=== PATIENT | female | born 1965 | race African-American/Black ===

== ENCOUNTER 2017-06-05 14:35 | Emergency (ER) | payer OTHER, MEDICARE ==
[~2017-06-05] VITALS: Ht 162.6 cm; Wt 86.2 kg
[~2017-06-05 14:35] MED LIST: ADVAIR 250-501 EACH INH; ALBUTEROL2.5 MG/0.5 INH/SOL; ALPRAZOLAM1 M2 PO; BUSPIRONE HCL30 M1 PO; CHANTIX0.5 M1 PO; CLONAZEPAM0.5 M2 PO; CLONAZEPAM1 M2 PO; CYCLOBENZAPRINE5 M2 PO; DAILY MULTIPLE1 EACH PO; DITROPAN XL10 M1 PO; ESCITALOPRAM OX20 MG PO; GUAIFENESIN-COD10 ML PO; IPRATROPIU0.2 MG/1 M INH/SOL; LEXAPRO20 M1 PO; LYRICA75 M1 PO; MEDROL4 M2 PO; MINIPRESS2 M1 PO; MONTELUKAST SOD10 M1 PO; NASONEX17 GM NASB; PANTOPRAZOLE SO40 M1 PO; PRAZOSIN HCL1 M1 PO; PROAIR HFA8.5 GM INH; TESSALON PERLE100 M1 PO; XANAX1 M1 PO; ZITHROMAX500 M2 PO
--- NOTE | 2017-06-05 16:05 | ED GI/GU/ABDOMINAL COMPLAINT ---
History of Present Illness General Chief Complaint: Abdominal Pain/Flank Pain Stated Complaint: ABDOMINAL PAIN, DIZZINESS Source: patient Exam Limitations: no limitations Vital Signs & Intake/Output Vital Signs & Intake/Output Vital Signs Date Time Temp Pulse Resp B/P B/P Pulse O2 O2 Flow FiO2 Mean Ox Delivery Rate 06/05 1955 98.1 77 18 98/55 100 Room Air 06/05 1836 95 Room Air 06/05 1447 97.5 76 20 112/78 95 Room Air Allergies Coded Allergies: No Known Allergies (04/13/16) Reconcile Medications Albuterol Sulfate (Proair Hfa) 90 MCG HFA.AER.AD 2 PUF INH Q4-6 PRN PRN ASTHMA (Reported) Buspirone HCl 30 MG TABLET 1 TAB PO BID DEPRESSION (Reported) Clonazepam 0.5 MG TABLET 1 TAB PO DAILY ANXIETY (Reported) Clonazepam 1 MG TABLET 1 TAB PO QPM ANXIETY (Reported) Cyclobenzaprine HCl 5 MG TABLET 1 TAB PO BIDP PRN PAIN (Reported) Escitalopram Oxalate 20 MG TABLET 1 TAB PO DAILY DEPRESSION (Reported) Fluticasone/Salmeterol (Advair 250-50 Diskus) 250 MCG-50 MCG/DOSE BLST.W.DEV 1 PUF INH BID ASTHMA (Reported) Mometasone Furoate (Nasonex) 50 MCG SPRAY.PUMP 2 SPRAY NASB DAILY ALLERGIES ( Reported) Montelukast Sodium 10 MG TABLET 1 TAB PO QPM ASTHMA (Reported) Oxybutynin Chloride (Ditropan XL) 10 MG TAB.ER.24 1 TAB PO DAILY INCONTINENCE (Reported) Pantoprazole Sodium 40 MG TABLET.DR 1 TAB PO DAILY ACID REFLUX (Reported) Prazosin HCl (Minipress) 2 MG CAPSULE 1 CAP PO QPM PTSD (Reported) Prazosin HCl 1 MG CAPSULE 1 CAP PO BID PRN ANXIETY (Reported) Pregabalin (Lyrica) 75 MG CAPSULE 1 CAP PO BID CHRONIC PAIN Triage Note: PT STATES SHE HAS BEEN URINATING FREQUENTLY. PT STATES SHE IS INCONTINENT OF URINE AND WAS ON OXYBUTIN AND EVERYTHING WAS FINE BUT SINCE SHE HAS BEEN OFF SHE HAS NEEDED DEPENDS D/T INCONTINENCE. PT STATES SHE FEELS BLOATED AND HAS BLIATERAL FLANK PAIN WITH RLQ PAIN Triage Nurses Notes Reviewed? yes LMP (ages 10-50): hysterectomy ? N Is pt currently ? No Onset: Gradual Duration: day(s): Timing: recent history Quality/Severity: aching, cramping Location: generalized abdomen Prior Abdominal Problems: none HPI: 52YO female presents to ED complaining of generalized abdominal aching and cramping pain worsening over the past 3 days. Patient also complaining of abdominal bloating and fullness. Patient reports history of overactive bladder in the past, was formally on oxybutynin however discontinued this medication a year ago because she "felt better". Patient reports increasing urinary frequency and urinary incontinence within the past few weeks. Patient reports that she has intermittent cough productive of yellow sputum, intermittent dizziness and dyspnea. Patient also reporting substernal chest pressure intermittently, without radiation. Patient admits to recent generalized weakness and fatigue, headache, myalgias. She denies fevers, diarrhea, vomiting, dysuria, fall or head trauma. (Mary Lopez) Past History Travel History Traveled to [place] past 21 day No Medical History Any Pertinent Medical History? 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 No (Mary Lopez) Review of Systems Review of Systems Constitutional: Reports: see HPI. EENTM: Reports: no symptoms. Respiratory: Reports: see HPI. Cardiovascular: Reports: see HPI. GI: Reports: see HPI. Genitourinary: Reports: see HPI. Musculoskeletal: Reports: see HPI. Skin: Reports: no symptoms. Neurological/Psychological: Reports: see HPI. Hematologic/Endocrine: Reports: no symptoms. Immunologic/Allergic: Reports: no symptoms. All Other Systems: Reviewed and Negative (Mary Lopez) Physical Exam Physical Exam General Appearance: well developed/nourished, no apparent distress, alert, awake Head: atraumatic, normal appearance Eyes: Bilateral: normal appearance. Ears, Nose, Throat, Mouth: hearing grossly normal Neck: normal inspection, supple, full range of motion Respiratory: normal breath sounds, no respiratory distress, lungs clear Cardiovascular: regular rate/rhythm Gastrointestinal: normal bowel sounds, soft, no organomegaly, tenderness through out abdominal exam with gaurding, no rebound tenderness Back: normal inspection, normal range of motion Extremities: normal range of motion Neurologic/Psych: awake, alert, oriented x 3, patient tearful during exam Skin: intact, normal color, warm/dry Core Measures ACS in differential dx? Yes Sepsis Present: No Sepsis Focused Exam Completed? No (Reshma REA,Mary Jaramillo) Progress Differential Diagnosis: AMI, appendicitis, biliary colic, bowel obstruction, cholecystitis, diverticulitis, gastritis, hernia, inflamm bowel dis, kidney stone, pancreatitis, peptic ulcer, PUD/GERD, SBO Plan of Care: Orders Procedure Date/time Status Add-on Test (ER Only) 06/05 1618 Active EKG 06/05 1618 Active URINALYSIS 06/05 1529 Complete TROPONIN LEVEL 06/05 1529 Complete COMPREHENSIVE METABOLIC PANEL 06/05 1529 Complete CBC WITHOUT DIFFERENTIAL 06/05 1529 Complete Laboratory Tests 06/05/17 1702: Anion Gap 14, Estimated GFR > 60, BUN/Creatinine Ratio 11.3, Glucose 89, Calcium 9.5, Total Bilirubin 0.1 L, AST 22, ALT 27, Alkaline Phosphatase 98, Troponin I < 0.01, Total Protein 7.6, Albumin 4.3, Globulin 3.3, Albumin/Globulin Ratio 1.3 , CBC w Diff NO MAN DIFF REQ, RBC 4.35, MCV 85.6, MCH 28.7, RDW 14.4, MPV 7.7, Gran % 52.5, Lymphocytes % 40.5, Monocytes % 5.0, Eosinophils % 1.0, Basophils % 1.0, Absolute Granulocytes 3.7, Absolute Lymphocytes 2.9, Absolute Monocytes 0.4 , Absolute Eosinophils 0.1, Absolute Basophils 0.1, PUBS MCHC 33.6 06/05/17 1641: Urine Color YEL, Urine Clarity CLEAR, Urine pH 6.0, Ur Specific [place] 1.020, Urine Protein NEG, Urine Ketones NEG, Urine Nitrite NEG, Urine Bilirubin NEG, Urine Urobilinogen 0.2, Ur Leukocyte Esterase NEG, Ur Microscopic SEDIMENT EXAMINED, Urine RBC 1-3, Urine WBC RARE, Ur Epithelial Cells FEW, Urine Bacteria RARE H, Urine Mucus FEW, Urine Hemoglobin SMALL H, Urine Glucose NEG CT scan without acute abnormality. Patient's EKG is in sinus rhythm, troponin negative. Patient has no active chest pain, chest pain is associated with generalized abdominal pain. Patient has no significant cardiac risk factors other than age greater than 50. There is a low suspicion for cardiac etiology regarding the patient's pain. It is recommended that the patient follow-up with her residential concierge this month for further evaluation. It is also recommended that the patient follow up with her primary care doctor for routine outpatient blood work and annual physical examination. The patient is in no acute distress, nontoxic appearing, vital signs are stable. The patient agrees with the plan of care. The patient was seen and evaluated by Dr. Kirk who agrees with the plan of care. Diagnostic Imaging: Viewed by Me: CT Scan. Discussed w/RAD: CT Scan. Radiology Impression: PATIENT: RENATE SCHRADER PRESENT AGE: 52 PATIENT ACCOUNT NO: [id number] : 65 LOCATION: [facility] ORDERING PHYSICIAN: Mary REA SERVICE DATE: 06/05/17 EXAM TYPE: CAT - CT ABD & PELVIS W IV CONTRAST EXAMINATION: CT ABDOMEN AND PELVIS WITH CONTRAST CLINICAL INFORMATION: Generalized abdominal pain. Bloating. COMPARISON: CT scan abdomen pelvis 01/16/2015 TECHNIQUE: Multidetector volumetric imaging was performed of the abdomen and pelvis following IV administration of 95 mL of Optiray 320 intravenous contrast. Sagittal and coronal reformatted images were obtained on the technologist's workstation. DLP: 510.24 mGy-cm FINDINGS: LUNG BASES: The visualized lung bases are unremarkable. LIVER, GALLBLADDER, AND BILIARY TREE: The liver is normal in size, shape, and attenuation. No focal hepatic lesion or biliary ductal dilatation is present. The gallbladder is unremarkable with no evidence of radiopaque gallstones, gallbladder wall thickening, or obvious pericholecystic inflammatory changes. PANCREAS: Unremarkable. SPLEEN: Unremarkable. ADRENAL GLANDS: Unremarkable. KIDNEYS AND URETERS: The kidneys are normal in size, shape, and attenuation. No hydronephrosis, hydroureter, or calculi seen. No perinephric stranding. 2 small cortical cysts in the right kidney. BLADDER: Unremarkable. GASTROINTESTINAL TRACT: The small and large bowel are unremarkable. The appendix is unremarkable. ABDOMINAL WALL: No significant hernia is appreciated. LYMPH NODES: Normal. VASCULAR: Unremarkable. PELVIC VISCERA: Uterus is absent. No adnexal abnormality. OSSEOUS STRUCTURES: Unremarkable. IMPRESSION: No acute abnormality CT scan abdomen pelvis DICTATED BY: Lucas Ghosh MD DATE/TIME DICTATED:06/05/171799 WORKFORCE DEVELOPMENT VICE PRESIDENT:JEREMY DATE/TIME TRANSCRIBED:06/05/171799 CONFIDENTIAL, DO NOT COPY WITHOUT APPROPRIATE AUTHORIZATION. <Electronically signed in Other Vendor System> SIGNED BY: Lucas Ghosh MD 06/05/171806 Initial ED EKG: sinus rhythm @67bpm, nonspecific ST changes Prior EKG: unchanged (12/07/16) (Mary Lopez) Departure Departure Disposition: HOME OR SELF CARE Condition: Stable Clinical Impression Primary Impression: Abdominal pain Secondary Impressions: Chest pain Referrals: Eder CARRERA,Merced Winslow (PCP/Family) Additional Instructions: Follow-up with your residential concierge regarding abdominal pain and bloating. Continue antibiotics as prescribed by her primary care doctor. Return to the emergency Department with any worsening symptoms or concerns. Please note that there might be incidental findings in your evaluation that are unrelated to the current emergency department visit. Please notify your primary care doctor about this emergency department visit in order to obtain and review all of the testing performed so that these incidental findings can be monitored as needed. If you had an x-ray performed, please understand that some fractures may not be seen on the initial set of x-rays. If your symptoms persist you might need a repeat set of x-rays to check for such a fracture. If you had a laceration evaluated, please understand that foreign bodies such as glass or wood may not be visible to the naked eye or on plain x-rays. If the wound becomes red, swollen, increasingly more painful or if there is any drainage from the wound, please have it reevaluated by a physician for the possibility of a retained foreign body. If you're unable to follow up as outlined in the discharge instructions please return to the emergency department. Thank you for choosing the [facility] Emergency Department for your care. It was a pleasure to serve you today. Departure Forms: Customer Survey General Discharge Information (Mary Lopez) PA/CRATE REPAIRER Co-Sign Statement Statement: ED Attending supervision documentation- [] I saw and evaluated the patient. I have also reviewed all the pertinent lab results and diagnostic results. I agree with the findings and the plan of care as documented in the PA's/CRATE REPAIRER's documentation. [X] I have reviewed the ED Record and agree with the PA's/CRATE REPAIRER's documentation. [] Additions or exceptions (if any) to the PAs/CRATE REPAIRER's note and plan are summarized below: [] (Ayaan Kirk DO)
[2017-06-05 17:20] LABS: ABSOLUTE BASOPHIL COUNT 0.1 /CUMM (0.0-0.2); ABSOLUTE EOSINOPHIL COUNT 0.1 /CUMM (0.0-0.7); ABSOLUTE GRANULOCYTE CT 3.7 /CUMM (1.4-6.5); ABSOLUTE LYMPH COUNT 2.9 /CUMM (1.2-3.4); ABSOLUTE MONOCYTE COUNT 0.4 /CUMM (0.10-0.60); GRANULOCYTE % 52.5 % (42.2-75.2); HEMATOCRIT 37.2 % (37-47); MEAN CORPUSCULAR HGB 28.7 PG (27.0-31.0); MEAN CORPUSCULAR HGB CONC 33.6 G/DL (33.0-37.0); MEAN CORPUSCULAR VOLUME 85.6 FL (81.0-99.0); MEAN PLATELET VOLUME 7.7 FL (7.4-10.4); PLATELET COUNT 327 /CUMM (130-400); RBC DISTRIBUTION WIDTH 14.4 % (11.5-14.5); RED BLOOD CELL CT 4.35 /CUMM (4.20-5.40)
--- NOTE | 2017-06-05 18:07 | CT SCAN REPORT ---
EXAMINATION: CT ABDOMEN AND PELVIS WITH CONTRAST CLINICAL INFORMATION: Generalized abdominal pain. Bloating. COMPARISON: CT scan abdomen pelvis 01/16/2015 TECHNIQUE: Multidetector volumetric imaging was performed of the abdomen and pelvis following IV administration of 95 mL of Optiray 320 intravenous contrast. Sagittal and coronal reformatted images were obtained on the technologist's workstation. DLP: 510.24 mGy-cm FINDINGS: LUNG BASES: The visualized lung bases are unremarkable. LIVER, GALLBLADDER, AND BILIARY TREE: The liver is normal in size, shape, and attenuation. No focal hepatic lesion or biliary ductal dilatation is present. The gallbladder is unremarkable with no evidence of radiopaque gallstones, gallbladder wall thickening, or obvious pericholecystic inflammatory changes. PANCREAS: Unremarkable. SPLEEN: Unremarkable. ADRENAL GLANDS: Unremarkable. KIDNEYS AND URETERS: The kidneys are normal in size, shape, and attenuation. No hydronephrosis, hydroureter, or calculi seen. No perinephric stranding. 2 small cortical cysts in the right kidney. BLADDER: Unremarkable. GASTROINTESTINAL TRACT: The small and large bowel are unremarkable. The appendix is unremarkable. ABDOMINAL WALL: No significant hernia is appreciated. LYMPH NODES: Normal. VASCULAR: Unremarkable. PELVIC VISCERA: Uterus is absent. No adnexal abnormality. OSSEOUS STRUCTURES: Unremarkable. IMPRESSION: No acute abnormality CT scan abdomen pelvis
[2017-06-05 19:56] VITALS: BP 98/55
== END 2017-06-05 20:02 ==
LOC: ERH 14:35
PROVIDERS: Physician Assistant Medical
DX: R10.84 Generalized abdominal pain (principal); R07.9 Chest pain, unspecified
CPT/HCPCS: 74177; 81001; 93005; 93010

== ENCOUNTER 2017-09-19 11:15 | Emergency (ER) | payer OTHER, MEDICARE ==
[~2017-09-19] VITALS: Ht 162.6 cm; Wt 81.6 kg
[~2017-09-19 11:15] MED LIST changes: +BUSPIRONE HCL10 M1 PO; -BUSPIRONE HCL30 M1 PO
--- NOTE | 2017-09-19 12:04 | RADIOLOGY REPORT ---
EXAMINATION: XR CHEST CLINICAL INFORMATION: Pain with deep inspiration to right side. Rule out bronchitis versus asthma versus right rib fracture. COMPARISON: Chest x-ray dated 12/07/2016 and 07/14/2016. TECHNIQUE: 2 views of the chest were obtained. FINDINGS: The cardiomediastinal silhouette is within normal limits in size. Lungs bilaterally are symmetrically expanded and clear. No focal consolidation, effusion or pneumothorax is seen. Bony structures are unremarkable. No definite right rib fracture is seen. IMPRESSION: Unremarkable examination.
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
[2017-09-19 15:44] LABS: ABSOLUTE BASOPHIL COUNT 0 /CUMM (0.0-0.2); ABSOLUTE EOSINOPHIL COUNT 0.1 /CUMM (0.0-0.7); ABSOLUTE GRANULOCYTE CT 3.6 /CUMM (1.4-6.5); ABSOLUTE LYMPH COUNT 2.1 /CUMM (1.2-3.4); ABSOLUTE MONOCYTE COUNT 0.4 /CUMM (0.10-0.60); BASOPHIL % 0.5 % (0.0-2.0); EOSINOPHIL % 1.1 % (0-5); GRANULOCYTE % 57.6 % (42.2-75.2); HEMATOCRIT 37.4 % (37-47); MEAN CORPUSCULAR HGB 28.1 PG (27.0-31.0); MEAN PLATELET VOLUME 7.6 FL (7.4-10.4); PLATELET COUNT 338 /CUMM (130-400); RBC DISTRIBUTION WIDTH 14.6 % (11.5-14.5); WHITE BLOOD CELL COUNT 6.2 /CUMM (4.8-10.8)
[2017-09-19] MEDS ORDERED: MOBIC15 M1 PO (16:59)
[2017-09-19 17:33] VITALS: BP 180/80
== END 2017-09-19 17:34 ==
LOC: ERH 11:15
PROVIDERS: Physician Assistant
DX: M19.90 Unspecified osteoarthritis, unspecified site (principal); R07.81 Pleurodynia
CPT/HCPCS: 71046; 93005; 93010

== ENCOUNTER 2017-10-09 00:52 | Emergency (ER) | payer OTHER, MEDICARE ==
[~2017-10-09] VITALS: Ht 162.6 cm; Wt 86.2 kg
[~2017-10-09 00:52] MED LIST changes: +MOBIC15 M1 PO
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
[2017-10-09 02:20] LABS: ABSOLUTE BASOPHIL COUNT 0.1 /CUMM (0.0-0.2); ABSOLUTE EOSINOPHIL COUNT 0.1 /CUMM (0.0-0.7); ABSOLUTE GRANULOCYTE CT 4.2 /CUMM (1.4-6.5); ABSOLUTE LYMPH COUNT 3.1 /CUMM (1.2-3.4); ABSOLUTE MONOCYTE COUNT 0.4 /CUMM (0.10-0.60); BASOPHIL % 0.6 % (0.0-2.0); EOSINOPHIL % 1.6 % (0-5); GRANULOCYTE % 53.3 % (42.2-75.2); HEMATOCRIT 39.7 % (37-47); MEAN CORPUSCULAR HGB 28.4 PG (27.0-31.0); MEAN CORPUSCULAR HGB CONC 33.6 G/DL (33.0-37.0); MEAN CORPUSCULAR VOLUME 84.6 FL (81.0-99.0); MEAN PLATELET VOLUME 7.7 FL (7.4-10.4); PLATELET COUNT 320 /CUMM (130-400); RBC DISTRIBUTION WIDTH 14.8 % (11.5-14.5); RED BLOOD CELL CT 4.69 /CUMM (4.20-5.40); WHITE BLOOD CELL COUNT 7.9 /CUMM (4.8-10.8)
--- NOTE | 2017-10-09 11:41 | ED PSYCH CRISIS CONSULTATION ---
Crisis Consult Basic Assessment Date of Consult: 10/09/17 Responsible Person/Accompanied By: self/biba Insurance Authorization: Insurance #1: Insurance name: [facility] Phone number: Policy number: [id number] Group number: Authorization number: ED Provider: Patient's ED Provider: Ayaan Bai MD Primary Care Physician: Patient's PCP: Merced Gaines MD PCP's Current Psychiatrist: medications prescribed by PCP Nayla Gaines Chief Complaint: Psychiatric Related Complaint Patient's Quote: I was already drinking. i wanted to get his attention. Present Illness: Pt is a 52 yo female biba early this morning to [place] ED on a [facility] PEER for SI with superficial cuts on her wrists. Pt reports she doesn't typically drink but was drinking etoh last night and has been upset since she has been in conflict with her youngest son past week. She reports he is a marine stationed in [place] and they are having a disagreement over his relationship with . She reports they are generally close and talk every day but since conflict last week he hasn't been responding to her calls/texts. She reports posting "If you're not going to speak to me I would be better off killing myself". She reports she also did superficial cuttting to wrists with razor. She reports since childhood using cutting as a coping mechanism. C-SSRA completed. She reports 1x inpatient psychiatric tx in 2008 in [facility] for SI and cutting episode. Pt reports significant trauma hx and is diagnosed PTSD. Pt reports receiving prescriptions of Prazosin, Klonopin and Busbar by her PCP Nayla Gaines MD. Pt reports brief tx at [facility] in 2016 and has received tx at [facility]. She reports not wanting to continue at [facility] and is in process to find a new private provider. Pt reports she is (4yrs) and has 6 adult children with youngest age 24 stationed in [place]. Pt states "I don't want to ". I have my other kids too that I'm close with". Pt denies HI/AH/VH. Pt reports no gun access. Pt denies substance use. Pt presents as tired (hung over) but cooperative, pleasant and OX3. Case reviewed with Dr Larios. Recommendation for voluntary inpatient treatment with alternative plan for IOP level of care. Reviewed recommendation with pt and . Both deny need for pt to receive inpatient treatment. supports pt statement that she is not a risk for self harm. Pt in agreement to attend IOP intake October 13 at 2pm. Reviewed with pt and that if symptoms return pt should return to [place] ED or nearest emergency dept. Patient's Address: [address] [place] [address] Other Phone Number: Who Do You Live With? Spouse Family/Informants Interviewed: collateral provided by pt Lei . He reports being a sleep at the time of incident last evening. He reports "she would never do anything to hurt herself". He reports she is not depressed but his having relationship difficulties with her son. He reports she seldom drinks alcohol and doesn't use drugs. He reports she is usually active and involvement in positive family activities and this a one time event. He reports being to pt 5 yrs and hasn't experienced her to be a risk to self. He reports feeling comfortable with plan to discharge home. Allergies - Coded Allergies: No Known Allergies (04/13/16) Current Medications - Scheduled Medications Buspirone HCl 10 MG TABLET 2 TAB PO TID MENTAL HEALTH (Reported) Entered as Reported by Ray Anderson on 03/09/16 1543 Clonazepam 0.5 MG TABLET 1 TAB PO DAILY ANXIETY #30 (Reported) Entered as Reported by Brandt Spence on 12/07/16 1135 Clonazepam 1 MG TABLET 1 TAB PO QPM ANXIETY #30 (Reported) Entered as Reported by Brandt pSence on 12/07/16 1135 Escitalopram Oxalate 20 MG TABLET 1 TAB PO QPM DEPRESSION (Reported) Entered as Reported by Raiza Castro on 04/13/16 1425 Fluticasone/Salmeterol (Advair 250-50 Diskus) 250 MCG-50 MCG/DOSE BLST.W.DEV 1 PUF INH BID ASTHMA (Reported) Entered as Reported by Ray Anderson on 03/09/16 1537 Mometasone Furoate (Nasonex) 50 MCG SPRAY.PUMP 2 SPRAY NASB DAILY ALLERGIES ( Reported) Entered as Reported by Brandt Spence on 12/07/16 1139 Montelukast Sodium 10 MG TABLET 1 TAB PO QPM ASTHMA (Reported) Entered as Reported by Ray Anderson on 03/09/16 1542 Oxybutynin Chloride (Ditropan XL) 10 MG TAB.ER.24 1 TAB PO DAILY INCONTINENCE (Reported) Entered as Reported by Ray Anderson on 03/09/16 1541 Prazosin HCl (Minipress) 2 MG CAPSULE 4 CAP PO QPM PTSD (Reported) Entered as Reported by Ray Anderson on 03/09/16 1547 Pregabalin (Lyrica) 75 MG CAPSULE 1 CAP PO BID CHRONIC PAIN #20 CAP Prescribed by Eliezer Dunn on 04/13/16 Scheduled PRN Medications Albuterol Sulfate (Proair Hfa) 90 MCG HFA.AER.AD 2 PUF INH Q4-6 PRN PRN ASTHMA (Reported) Entered as Reported by Ray Anderson on 03/09/16 1537 Cyclobenzaprine HCl 5 MG TABLET 1 TAB PO BIDP PRN PAIN (Reported) Entered as Reported by Brandt Spence on 12/07/16 1138 Prazosin HCl 1 MG CAPSULE 1 CAP PO BID PRN ANXIETY #60 (Reported) Entered as Reported by Brandt Spence on 12/07/16 1137 Laboratory Results: Laboratory Tests 10/09/17 0211: Anion Gap 11, Estimated GFR > 60, BUN/Creatinine Ratio 10.0, Glucose 94, Calcium 9.5, Total Bilirubin 0.3, AST 21, ALT 24, Alkaline Phosphatase 104, Total Protein 7.5, Albumin 4.2, Globulin 3.3, Albumin/Globulin Ratio 1.3, Lipase 102, CBC w Diff NO MAN DIFF REQ, RBC 4.69, MCV 84.6, MCH 28.4, MCHC 33.6, RDW 14.8 H , MPV 7.7, Gran % 53.3, Lymphocytes % 39.6, Monocytes % 4.9, Eosinophils % 1.6, Basophils % 0.6, Absolute Granulocytes 4.2, Absolute Lymphocytes 3.1, Absolute Monocytes 0.4, Absolute Eosinophils 0.1, Absolute Basophils 0.1, Serum Alcohol 165.0 10/09/17 0130: Urine Opiates Screen < 100, Methadone Screen 43, Barbiturate Screen < 60, Ur Phencyclidine Scrn < 6.00, Amphetamines Screen < 100, U Benzodiazepines Scrn < 85, Urine Cocaine Screen < 50, Urine Cannabis Screen < 5.00 Past History Past Medical History Neurological: NONE EENT: NONE Cardiovascular: NONE Respiratory: asthma, COPD, CHRONIC BRONCHITIS Gastrointestinal: NONE Hepatic: NONE Renal: urinary incontinence Musculoskeletal: chronic back pain Psychiatric: anxiety, depression, PTSD Endocrine: NONE Blood Disorders: NONE Cancer(s): NONE 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 Currently active in job search. Psychiatric Treatment History Psych Treatment Psychiatric Treatment Yes Inpatient Treatment Yes Outpatient Treatment Yes Location of Treatment Inpatient 2009 [facility]; Outpatient 2015; [facility] Reason for Treatment PTSD anxiety Response to Treatment pt reports general stability but is looking to return to a private outpatient provider Diagnosis by History: PTSD Substance Use/Abuse History Drug Use/Abuse Substances Used/Abused Yes Substance Used/Abused Alcohol Last Used last evening How much used/taken undetermined How often seldom Substance Abuse Treatment Substance Abuse Treatment Past Substance Abuse [place] No Inpatient Treatment No Outpatient Treatment No Comments: pts reports seldom etoh use but was drinking last night and she feels contributed to her distress regarding her recent lack of contact with her son stationed in [place]. Current Mental Status Mental Status Orientation: Person, Place, Situation Affect: WNL Speech: WNL Neuro-vegetative: Sleep Disturbance Appearance Appearance- Dress/Hygiene: hospital scrubs; disheveled; bandage on right wrist Behaviors Thought Process: WNL Thought Content: WNL Memory: WNL Insight: Fair SI/HI Risk Assessment Past Suicidal Ideation/Attempts Yes Current Suicidal Ideation/Att No Past Homicidal Ideation/Att: No Current Homicidal Ideation/Attempts No Degree of Intent: None Danger To: Self Gravely Disabled: Poor Impulse Control, Poor Judgment Risk Factors: high anxiety/distress, history of suicide atmpts, SA/MH hospitalized Lethality Ratin PTSD Checklist PTSD Done? patient declined ED Management Sitter: Yes Restraints: No DSM5/PS Stressors/Medical Prob Diagnosis' (DSM 5, Stressors, Medical): Unspecified Depression F32.9 Alcohol Use d/o F10.10 relationship with son COPD Current GAF: 40 Comments: pt reports recent distress related to discord with son who she generally has a very close relationship. He is a marine stationed in [place] and they had a disagreement last week and hasn't been returning her calls/texts. She jason SI but states she wanted to get his attention. Departure Disposition Psych Medical Clearance Date: 10/09/17 Medically Cleared at: 0815 Time Started: 0815 Time Ended: 0900 Psychiatrist Consulted: Merced Larios MD Date Disposition Established: 10/09/17 Time Disposition Established: 1130 Plan for Disposition - Modality: IOP Facility: [facility] Follow-up Appt Date: 10/13/17 Follow-Up Appt Time: 1400 Contact: Chasity Rationale for Disposition: increase mood stabilization; psychiatric medication monitoring Referrals Eder CARRERA,Merced Winslow (PCP/Family)
[2017-10-09 11:50] VITALS: BP 126/80
== END 2017-10-09 12:06 ==
LOC: ERH 00:52
PROVIDERS: Emergency Medicine
DX: S60.811A Abrasion of right wrist, initial encounter (principal); S60.812A Abrasion of left wrist, initial encounter; F32.9 Major depressive disorder, single episode, unspecified; J44.9 Chronic obstructive pulmonary disease, unspecified; F10.10 Alcohol abuse, uncomplicated; X78.9XXA Intentional self-harm by unspecified sharp object, initial encounter
CPT/HCPCS: 80307; G0463; G0480; J3101; J3490